=== PATIENT | female | born 1985 | race Caucasian/White ===

== ENCOUNTER 2020-12-29 05:58 | Day surgery (SDC) | payer BC, OTHER ==
[2020-12-28 10:50] VITALS: BMI 30.7
[2020-12-29] MEDS ORDERED: Lidocaine 1% MPF 2 ML VIAL ONE (06:11)
[2020-12-29] MEDS ORDERED: Acetaminophen 500 MG TAB ONE ×2 (06:29→13:36)
[2020-12-29] MEDS ORDERED: EPINEPHrine 1 MG/ML AMP ONE (06:38)
[2020-12-29] MEDS ORDERED: Silver Nitrate Application 1 EACH ONE (06:39)
[2020-12-29] MEDS ORDERED: Bupivacaine PF 0.5% 30 ML VIAL ONE (06:39)
[2020-12-29] MEDS ORDERED: Methylene Blue 50 MG/10 ML AMPUL ONE (06:39)
[2020-12-29] MEDS ORDERED: Lidocaine 2% Jelly 5 ML TUBE ONE (06:55)
[2020-12-29] MEDS ORDERED: Fentanyl 100 MCG/2 ML VIAL ONE (07:01)
[2020-12-29] MEDS ORDERED: PROPOFOL 20 ML ONE (07:01)
[2020-12-29] MEDS ORDERED: Rocuronium Bromide 10 MG/ML (10ML VIAL) ONE (07:01)
[2020-12-29] MEDS ORDERED: Lidocaine 1% PF 5 ML VIAL ONE (07:01)
[2020-12-29] MEDS ORDERED: Dexamethasone 20 MG/5 ML VIAL ONE (07:30)
[2020-12-29] MEDS ORDERED: Glycopyrrolate 0.2 MG/ML 5 ML SYRINGE ONE (07:30)
[2020-12-29] MEDS ORDERED: ePHEDrine Sulfate 50 MG/10 ML VIAL ONE (07:33)
[2020-12-29] MEDS ORDERED: PHENYLEPHRINE-NS 100 MCG/ML 10 ML SYRINGE ONE (08:21)
[2020-12-29] MEDS ORDERED: Ondansetron PF 4 MG/2 ML Vial ONE (09:21)
[2020-12-29] MEDS ORDERED: Ketorolac Tromethamine 30 MG/ML VIAL ONE (09:22)
[2020-12-29] MEDS ORDERED: Ferric Subsulfate (ASTRINGYN) 8 GM VIAL TOP SCH (10:00)
== END 2020-12-29 13:50 | disposition home or self-care (01) ==
LOC: CSHSDC 05:58
PROVIDERS: ATTEND Obstetrics & Gynecology
PROC: 0UDB8ZX Extraction of Endometrium, Via Natural or Artificial Opening Endoscopic, Diagnostic (ICD-10-PCS; principal; 2020-12-29)
PROC: 0UB98ZX Excision of Uterus, Via Natural or Artificial Opening Endoscopic, Diagnostic (ICD-10-PCS; principal; 2020-12-29)
PROC: 0U5B8ZZ Destruction of Endometrium, Via Natural or Artificial Opening Endoscopic (ICD-10-PCS; principal; 2020-12-29)
PROC: 0UB14ZZ Excision of Left Ovary, Percutaneous Endoscopic Approach (ICD-10-PCS; principal; 2020-12-29)
DX: N83.202 Unspecified ovarian cyst, left side (principal); N80.3 Endometriosis of pelvic peritoneum; N84.1 Polyp of cervix uteri; N80.0 Endometriosis of uterus; N84.0 Polyp of corpus uteri; N73.6 Female pelvic peritoneal adhesions (postinfective); D26.0 Other benign neoplasm of cervix uteri; N83.8 Other noninflammatory disorders of ovary, fallopian tube and broad ligament; N80.2 Endometriosis of fallopian tube; K21.9 Gastro-esophageal reflux disease without esophagitis; Z79.84 Long term (current) use of oral hypoglycemic drugs; Z79.899 Other long term (current) drug therapy
CPT/HCPCS: 88305; C1765; J0171; J0690; J1100; J1885; J2405; J2704; J3010; Q9968; S0020

== ENCOUNTER 2024-03-29 14:49 | Outpatient (CLI) | payer OTHER | END 2024-03-29 14:50 | disposition home or self-care (01) | LOC: CSHMAMMO 14:49 | PROVIDERS: ATTEND Obstetrics & Gynecology | DX: Z12.31 Encounter for screening mammogram for malignant neoplasm of breast (principal) | CPT/HCPCS: 77063; 77067 ==